=== PATIENT | female | born 1990 | race Two or more races ===

== ENCOUNTER 2023-10-27 17:00 | Observation (INO) | payer MEDICAID, OTHER ==
[2023-10-27] MEDS ORDERED: PREN1CAP PO (18:26)
== END 2023-10-27 19:05 | disposition home or self-care (01) ==
LOC: LDRP 17:00
PROVIDERS: ADMIT Obstetrics & Gynecology; ATTEND Obstetrics & Gynecology
DX: O41.03X0 Oligohydramnios, third trimester, not applicable or unspecified (principal); O09.43 Supervision of pregnancy with grand multiparity, third trimester; O36.5930 Maternal care for other known or suspected poor fetal growth, third trimester, not applicable or unspecified; O26.893 Other specified pregnancy related conditions, third trimester; H53.8 Other visual disturbances; Z3A.37 37 weeks gestation of pregnancy
CPT/HCPCS: 59025; 76818; 81002; 94760; G0378

== ENCOUNTER 2023-11-03 17:00 | Observation (INO) | payer MEDICAID ==
[~2023-11-03 17:00] MED LIST: PREN1CAP PO
[2023-11-03 19:10] LABS: Fern Testing Negative
== END 2023-11-03 19:31 | disposition home or self-care (01) ==
LOC: LDRP 17:00
PROVIDERS: ADMIT Obstetrics & Gynecology; ATTEND Obstetrics & Gynecology
DX: O09.43 Supervision of pregnancy with grand multiparity, third trimester (principal); O41.03X0 Oligohydramnios, third trimester, not applicable or unspecified; O42.92 Full-term premature rupture of membranes, unspecified as to length of time between rupture and onset of labor; Z3A.38 38 weeks gestation of pregnancy
CPT/HCPCS: 59025; 76818; 81002; 82948; G0378; Q0114